=== PATIENT | female | born 1990 | race African-American/Black ===

== ENCOUNTER 2018-06-27 09:58 | Emergency (ER) | payer MEDICAID, OTHER, SELFPAY ==
[~2018-06-27] VITALS: Ht 157.5 cm; Wt 53.3 kg
[2018-06-27 10:00] VITALS: BP 131/89
== END 2018-06-27 10:50 | disposition home or self-care (01) ==
LOC: ED 10:17
DX: K08.89 Other specified disorders of teeth and supporting structures (principal)
CPT/HCPCS: 99283

== ENCOUNTER 2019-11-14 08:06 | Emergency (ER) | payer MEDICAID ==
[~2019-11-14] VITALS: Ht 154.9 cm; Wt 58.2 kg
[2019-11-14 08:11] VITALS: BP 107/69
--- NOTE | 2019-11-14 09:00 | NUR ---
PT WITH SORE THROAT AND NASAL CONGESTION X4 DAYS, PT STATES SHE WAS TRYING TO JUST "DEAL WITH IT, BUT HER THROAT IS HURTING TOO BAD" ERMD IN TO EVFAN PT
== END 2019-11-14 10:27 | disposition home or self-care (01) ==
LOC: ED 10:20
DX: J02.0 Streptococcal pharyngitis (principal); F17.210 Nicotine dependence, cigarettes, uncomplicated; Z90.89 Acquired absence of other organs
CPT/HCPCS: 71046; 99283